=== PATIENT | female | born 1985 | race Caucasian/White ===

== ENCOUNTER 2020-04-08 20:14 | Inpatient (IN) | payer OTHER ==
[~2020-04-08] VITALS: Ht 162.6 cm; Wt 2.7 kg
[2020-04-08] MEDS ORDERED: ADULT LOW DOSE81 M1 PO (22:26)
[2020-04-08] MEDS ORDERED: PRENATAL VITAM1 EAC4 PO (22:27)
[2020-04-11] MEDS ORDERED: PERCOCET 5-3251 EACH PO (10:15)
[2020-04-11] MEDS ORDERED: SURFAK240 M1 PO (10:15)
[2020-04-11] MEDS ORDERED: IBUPROFEN800 MG PO (10:15)
== END 2020-04-11 10:40 | disposition home or self-care (01) | DRG 783 ==
LOC: LDR 20:14 → OB/GYN 20:14 → LDR 20:30 → OB/GYN 04-09 07:23
PROVIDERS: ADMIT Specialist; ATTEND Specialist
PROC: 10D00Z1 Extraction of Products of Conception, Low, Open Approach (ICD-10-PCS; principal; 2020-04-08)
PROC: 0UB70ZZ Excision of Bilateral Fallopian Tubes, Open Approach (ICD-10-PCS; 2020-04-08)
PROC: 4A1HXFZ Monitoring of Products of Conception, Cardiac Rhythm, External Approach (ICD-10-PCS; 2020-04-08)
PROC: 3E033VJ Introduction of Other Hormone into Peripheral Vein, Percutaneous Approach (ICD-10-PCS; 2020-04-08)
DX: O64.1XX0 Obstructed labor due to breech presentation, not applicable or unspecified (principal); O14.13 Severe pre-eclampsia, third trimester; O24.113 Pre-existing type 2 diabetes mellitus, in pregnancy, third trimester; O99.824 Streptococcus B carrier state complicating childbirth; Z30.2 Encounter for sterilization; Z3A.36 36 weeks gestation of pregnancy; Z37.0 Single live birth; E11.9 Type 2 diabetes mellitus without complications; Z79.4 Long term (current) use of insulin